=== PATIENT | female | born 1965 | race Caucasian/White ===

== ENCOUNTER 2018-11-14 16:56 | Emergency (ER) | payer SELFPAY, OTHER ==
[2018-11-14] MEDS: IBUPROFEN 600 MG TAB PO (20:40)
== END 2018-11-14 21:46 | disposition home or self-care (01) ==
LOC: FTE 16:56
DX: S52.611A Displaced fracture of right ulna styloid process, initial encounter for closed fracture (principal); I10 Essential (primary) hypertension; S52.501A Unspecified fracture of the lower end of right radius, initial encounter for closed fracture; W18.30XA Fall on same level, unspecified, initial encounter; Y92.9 Unspecified place or not applicable
CPT/HCPCS: 29125; 73090-RT; 73110-RT; 99283-25